=== PATIENT | male | born 1950 | race Caucasian/White ===

== ENCOUNTER 2023-09-17 12:30 | Emergency (ER) | payer OTHER ==
[~2023-09-17] VITALS: Ht 172.7 cm; Wt 59.9 kg
[2023-09-17 18:35] LABS: APPEARANCE,URINE Clear (CLEAR); BILIRUBIN,URINE Negative (NEGATIVE); BLOOD, URINE Negative Ery/uL (NEGATIVE); COLOR,URINE YELLOW (YELLOW); KETONES,URINE Trace mg/dL (NEGATIVE); LEUKOCYTE ESTERASE ,URINE Negative (NEGATIVE); NITRITE, URINE Negative (NEGATIVE); PROTEIN,URINE Negative (NEGATIVE); UGLUCOSE Negative (NEGATIVE)
[2023-09-17 18:38] VITALS: BP 129/68; TEMP 98.4; O2SAT 97
[2023-09-17 18:55] LABS: ADD URINE CULTURE NO; MUCUS,URINE Moderate /LPF (None Seen); RBC,URINE NONE SEEN /HPF (0-2); SQUAMOUS EPITHELIAL CELL,UR Few /HPF (None Seen); WBC,URINE 0-2 /HPF (0-3)
[2023-09-17 18:56] LABS: BACTERIA,URINE Rare /HPF (None Seen)
== END 2023-09-17 18:41 | disposition home or self-care (01) ==
LOC: ER 12:35
DX: S00.03XA Contusion of scalp, initial encounter (principal); M54.89 Other dorsalgia; W01.0XXA Fall on same level from slipping, tripping and stumbling without subsequent striking against object, initial encounter; Y93.89 Activity, other specified; Y92.89 Other specified places as the place of occurrence of the external cause; Y99.8 Other external cause status
CPT/HCPCS: 70450-TC; 72125-TC; 72128-TC; 81001